=== PATIENT | female | born 2000 | race Two or more races ===

== ENCOUNTER 2025-04-14 16:05 | Emergency (ER) | payer BC ==
[~2025-04-14] VITALS: Ht 167.6 cm; Wt 56.7 kg
[2025-04-14] MEDS: KETOROLAC TROMETHAMINE INJ 30 MG/ML VIAL IM ONE (16:44)
[2025-04-14] MEDS ORDERED: IBUP-1953 PO (18:23)
[2025-04-14] MEDS ORDERED: ACETAMINOPHEN 325 MG TABLET ONE (19:21)
[2025-04-14] MEDS: ACETAMINOPHEN 325 MG TABLET PO ONE (19:25)
[2025-04-14 19:27] VITALS: BP 128/80; TEMP 97.6; O2SAT 98
== END 2025-04-14 19:27 | disposition home or self-care (01) ==
LOC: ER 16:26
DX: M25.512 Pain in left shoulder (principal); M54.2 Cervicalgia; V49.09XA Driver injured in collision with other motor vehicles in nontraffic accident, initial encounter; Y93.89 Activity, other specified; Y92.410 Unspecified street and highway as the place of occurrence of the external cause; Y99.9 Unspecified external cause status
CPT/HCPCS: 99283; 96372; 73030; J1885